=== PATIENT | female | born 1940 | race Caucasian/White ===

== ENCOUNTER 2016-08-25 11:03 | Inpatient (IN) | payer OTHER, MEDICARE ==
[~2016-08-25] VITALS: Ht 160 cm; Wt 74.8 kg
[2016-09-14] MEDS ORDERED: LACTCAP8 PO (13:45)
[2016-09-14] MEDS ORDERED: VITA100036 PO (13:45)
[2016-09-14] MEDS ORDERED: MAGN400C2 PO (13:45)
[2016-09-14] MEDS ORDERED: LEVO50TA4 PO (13:45)
[2016-09-14] MEDS ORDERED: KRIL1000 PO (13:45)
[2016-09-14] MEDS ORDERED: PRIL20TA2 PO (13:45)
[2016-09-14] MEDS ORDERED: COQ-30CA2 PO (13:45)
[2016-09-14] MEDS ORDERED: CRANCAP PO (13:45)
[2016-09-14] MEDS ORDERED: ROSU20 PO (13:45)
[2016-09-14] MEDS ORDERED: ATEN25TA PO (13:45)
--- NOTE | 2016-09-28 19:42 | MH ---
cc: RIYA HUTCHINS DATE OF ADMISSION 09/29/2016 ADMISSION DIAGNOSIS Osteoarthritis of the left hip. HISTORY OF THE PRESENT ILLNESS This patient is a 76-year-old female with longstanding arthritis of the left hip. The patient has had extensive conservative care and has been followed by the undersigned for quite some time. The patient appears to be in progressive distress and losing function and activities. The patient has had conservative care that goes back many years. She cannot take NSAIDs because of kidney disease brought on by Vioxx. The patient was advised not to take that. She has seen physical therapy in the past. She has had injection of cortisone in the hip. X-ray shows evidence of extensive arthritis of the left hip and now she presents for surgical treatment. PAST MEDICAL HISTORY, SOCIAL HISTORY AND FAMILY HISTORY See attached notes. REVIEW OF SYSTEMS See attached notes. PHYSICAL EXAMINATION 5 feet 3 inches, 159 pounds. BMI 27.7. VITAL SIGNS: Blood pressure 122/78. HEENT: Normocephalic, atraumatic. Pupils equal, round, reactive to light and accommodation. Extraocular motions intact. NECK: Supple. CHEST: Clear. HEART: Regular rate and rhythm. ABDOMEN: Soft, nontender, normoactive bowel sounds. MUSCULOSKELETAL: Left hip severe restricted range of motion especially with internal and external rotation. Minimal shortening of the left leg compared to the right. Neurologic and vascular emanations within normal limits. IMPRESSION Osteoarthritis of the left hip. PLAN Left total hip replacement arthroplasty, direct anterior exposure. CONSENT The risks of surgery including infection, bleeding, loss of motion, continued pain, need for further surgery, neurologic and vascular injury. The patient understands these issues and wishes to press on with surgery as outlined above. MD VIVEK Huddleston/WALTER /5:58 PM /7:25 PM
[2016-09-29] MEDS ORDERED: LACTATED RINGER'S 1000 ML IV PRN (05:45)
[2016-09-29] MEDS ORDERED: METOPROLOL TARTRATE 25 MG TAB PO PRN (05:45)
[2016-09-29] MEDS ORDERED: INSULIN HUMAN REGULAR 1,000 UNITS/10 ML VIAL SQ PRN (05:45)
[2016-09-29] MEDS ORDERED: POVIDONE IODINE 5% (ANTISEPSIS KIT) 4 APPLICATIONS EACH NARE PRN (05:45)
[2016-09-29] MEDS ORDERED: SODIUM CHLORID 0.9% 500 ML IV PRN (05:45)
[2016-09-29] MEDS ORDERED: CHLORHEXIDINE GLUCONATE 2 % 1 PACK (2 CLOTHS) TOPICAL PRN (05:45)
[2016-09-29] MEDS ORDERED: POVIDONE IODINE 7.5% SCRUB 118 ML BOTTLE TOPICAL SCH (06:00)
[2016-09-29] MEDS ORDERED: VANCOMYCIN 1000 MG/NS 250 ML (for <70 kg) IV SCH ×2 (06:00)
[2016-09-29] MEDS ORDERED: ceFAZolin 2 GM PREMIX 50 ML IV SCH (06:00)
[2016-09-29 06:39] VITALS: BP 152/76; PULSE 60; RESP 20; TEMP 97.7; O2SAT 98
[2016-09-29] MEDS ORDERED: GENTAMICIN SULFATE 80 MG/2 ML VIAL ONE (06:54)
[2016-09-29] MEDS ORDERED: EXPAREL PERI-ARTICULAR INJECTION (TOTAL VOL. 60 ML) P-ARTICULR SCH ×2 (07:30)
[2016-09-29] MEDS ORDERED: SODIUM CHLORIDE 0.9% IV SCH (07:30)
[2016-09-29] MEDS ORDERED: TRANEXAMIC ACID IV SCH (07:30)
[2016-09-29] MEDS ORDERED: HYDR-3288 PO (07:39)
[2016-09-29] MEDS ORDERED: XARE10TA PO (07:39)
[2016-09-29] MEDS ORDERED: ACETAMINOPHEN/HYDROcodone 325 MG/7.5 MG TAB PO PRN (07:45)
[2016-09-29] MEDS ORDERED: MISCELLANEOUS NURSING INFORMATION XX PRN (07:45)
[2016-09-29] MEDS ORDERED: SODIUM CHLORIDE 0.9% FLUSH 5 ML FLUSH IVF PRN (07:45)
[2016-09-29] MEDS ORDERED: Post-op Orders (for Pharmacy) MISC XX ONE (07:45)
[2016-09-29] MEDS ORDERED: MORPHINE SULFATE 8 MG/ML INJ IM PRN (07:45)
[2016-09-29] MEDS ORDERED: NALOXONE HCL 0.4 MG/ML AMP IV PRN (07:45)
[2016-09-29] MEDS ORDERED: MORPHINE SULFATE 30 MG/30 ML PCA IV SCH (07:45)
[2016-09-29] MEDS ORDERED: MISCELLANEOUS PHARMACY INFORMATION XX ONE (07:45)
[2016-09-29] MEDS: ATORVASTATIN 40 MG TAB PO SCH (09:00)
[2016-09-29] MEDS: MAGNESIUM HYDROXIDE SUSP 30 ML CUP PO SCH ×3 (09:00→20:31)
[2016-09-29] MEDS: LEVOTHYROXINE SODIUM 50 MCG TAB PO SCH (09:00)
[2016-09-29] MEDS: PANTOPRAZOLE SOD 20 MG DELAYED RELEASE TAB PO SCH (09:00)
--- NOTE | 2016-09-29 09:21 | PD.OP ---
cc: Kory Washington MD Operative Report Date of Surgery: Sep 29, 2016 Preoperative Diagnosis: Osteoarthritis left hip, severe Postoperative Diagnosis: Same Procedure: Left total hip replacement arthroplasty, direct anterior exposure Anesthesia: Gen. Surgeon: Kory Washington Debubblizer(s): SANTANA Guillory Operation and Findings: EBL: 700 cc INDICATION: This patient presents with significant hip pain related to severe osteoarthritis of the left hip. The patient has had treatment including injections, oral medications, physical therapy. She now can no longer take NSAIDs because of kidney disease. Despite extensive conservative care this patient continues to be painful and now presents for surgical treatment. NOTE: Asiya Guillory PA-C was present for the entire surgical procedure as my diploma medical assistant. In my medical opinion her skill and care was necessary for the proper management of this patient. COMPONENTS: COMPANY: [employer] CUP: Searchlight, 54 mm, 100 series, gription surface LINER: Altrx 36, neutral STEM: Corail, size 13, standard offset, hydroxyapatite-coated HEAD: 36 mm, -2, 14 taper PROCEDURE: This patient was brought to the operating room and anesthetized in the supine position and positioned on the fracture table with both legs held extended. The left hip and leg was scrubbed with alcohol followed by Hibiclens followed by ChloraPrep and draped sterilely. Antibiotics were given within routine time window and a timeout was done. A 4 inch incision was made starting 2 cm distal and 2 cm lateral to the anterior superior iliac spine. The fascia moe was opened longitudinally. The interval between the fascia moe and the rectus was opened down to the capsule of the hip joint. Retractors were positioned allowing good visualization of the capsule. This was opened longitudinally and flaps were created. Stay sutures were utilized. Exposure was excellent. The neck was cut at the proper location using fluoroscopy as a guide. The head was removed. Deep retractors were positioned allowing good visualization of the acetabulum. Acetabulum was deepened down to the floor starting with a proper size reamer and reaming up to 53 mm. A trial was utilized. Fluoroscopy was used to check position and confirmed satisfactory alignment. The rim was reamed with a 54 mm reamer and the final cup was positioned in approximately 20 of anteversion and 40-45 of abduction. Position was satisfactory. A single hole eliminator was positioned followed by the final liner. The lifting hook was utilized. The leg was dropped to the floor, maximally externally rotated and brought across the midline. Retractors were positioned. A box osteotome was utilized followed by progressive broaching to the proper stem size. Trial reduction showed excellent alignment and fit. With 60 of external rotation the leg was dropped to the floor without evidence of anterior subluxation. The wound was irrigated. The final stem was inserted and was found to be very stable. The final reduction using the final head. Stability was as previously noted. Intraoperative x-rays were taken. The wound was irrigated copiously. Hemostasis was controlled. Local anesthesia was utilized. The capsule was repaired with #2 Tycron sutures. The fascia moe was repaired with running 0 PDS on a loop. Subcutaneous tissue was approximated with 2-0 Vicryl and skin with running intradermal 3-0 Vicryl followed by Steri-Strips. A sterile dressing was applied. The patient was awakened and taken to the recovery room in satisfactory condition. FINDINGS: There was severe arthritis of the left hip. Circumferential osteophytes seen. Significant inflammatory changes were noted. The final solution was excellent. Kory Washington MD Sep 29, 2016 09:21
--- NOTE | 2016-09-29 09:26 | RADRPT ---
EXAM DATE/TIME: 09/29/2016 08:02 [facility] COMPARISON: HIP LEFT (AP & LAT), August 17, 2014, 13:33. INDICATIONS : Left anterior total hip arthroplasty. MEDICAL HISTORY : None. SURGICAL HISTORY : None. ENCOUNTER: Initial ACUITY: 1 day PAIN SCORE: Non-responsive. LOCATION: Left hip FINDINGS: 4 spot fluoroscopic images of the left hip joint and in the operating and during a procedure demonstr ates a left hip joint osteoarthritis prior to placement of the left hip hardware/total hip arthroplas ty. CONCLUSION: Expected findings during left hip arthroplasty. Sudeep Weeks MD on September 29, 2016 at 9:18 Board Certified Radiologist. This report was verified electronically.
[2016-09-29] MEDS ORDERED: *morphine SULFATE 8 MG/ML PERIprocedure ONLY ONE (09:59)
[2016-09-29 10:00] VITALS: BP 133/85; PULSE 50; RESP 14; TEMP 95; O2SAT 98
[2016-09-29] MEDS: SODIUM CHLORIDE 0.9% FLUSH 5 ML FLUSH IVF SCH ×2 (10:00→20:29)
[2016-09-29] MEDS ORDERED: DO NOT ADM ANY ANTICOAGULANT DRUGS PRN (10:15)
[2016-09-29] MEDS ORDERED: fentaNYL CITRATE 250 MCG/5 ML AMP ONE (10:19)
[2016-09-29] MEDS: LACTATED RINGER'S 1000 ML INJ 1,000 ML IV SCH ×2 (10:26→20:29)
[2016-09-29 12:00] VITALS: BP 133/62; PULSE 54; RESP 17; TEMP 95; O2SAT 97
[2016-09-29] MEDS ORDERED: ePHEDrine/NS 25 MG/5 ML SYR IV ONE (12:00)
[2016-09-29] MEDS ORDERED: LACTATED RINGER'S 1000 ML INJ 2,000 ML IV ONE (12:00)
[2016-09-29] MEDS ORDERED: PHENYLEPH/NS 1000 MCG/10 ML SYR IV ONE (12:00)
[2016-09-29] MEDS ORDERED: PROPOFOL 200 MG/20 ML AMP IV ONE (12:00)
[2016-09-29] MEDS ORDERED: NEOSTIGMINE METHYLSULFATE 10 MG/10 ML VIAL IV PUSH ONE (12:00)
[2016-09-29] MEDS ORDERED: ONDANSETRON HCL 4 MG/2 ML VIAL IV PUSH ONE (12:00)
[2016-09-29 16:00] VITALS: BP 120/58; PULSE 64; RESP 17; TEMP 95.6; O2SAT 99
[2016-09-29] MEDS ORDERED: ONDANSETRON HCL 4 MG/2 ML VIAL IV PUSH PRN (17:00)
[2016-09-29 19:16] VITALS: BP 136/62; PULSE 61; RESP 18; TEMP 97.1; O2SAT 100
[2016-09-29] MEDS: SENNOSIDES 8.6 MG TAB PO SCH (20:29)
[2016-09-29] MEDS: ATENOLOL 25 MG TAB PO SCH (20:29)
[2016-09-29] MEDS: PCA - TOTAL MG MORPHINE DELIVERED PER SHIFT SCH (21:52)
[2016-09-29] MEDS ORDERED: diphenhydrAMINE HCL 25 MG CAP PO PRN (22:00)
[2016-09-29 23:37] VITALS: BP 100/44; PULSE 68; RESP 18; TEMP 98.5; O2SAT 98
[2016-09-30] VITALS (7 sets, daily range): BP systolic 95–110; BP diastolic 41–53; PULSE 68–83; RESP 17–18; TEMP 96–99.3; O2SAT 93–99
[2016-09-30] MEDS: LEVOTHYROXINE SODIUM 50 MCG TAB PO SCH (05:11)
[2016-09-30] MEDS: PANTOPRAZOLE SOD 20 MG DELAYED RELEASE TAB PO SCH (05:11)
[2016-09-30] MEDS: PCA - TOTAL MG MORPHINE DELIVERED PER SHIFT SCH (06:00)
--- NOTE | 2016-09-30 07:31 | HHI.FF ---
Face to Face Verification Diagnosis: (1) Left hip pain (2) Osteoarthritis of left hip Physical Therapy Gait training, Safety evaluation, Transfer training, bed to chair Hip: Total hip, Protocol: Left, Progress to weight bearing Left LE Weight Bearing: WB as tolerated Additional Instructions PT 4 days.wk for 2 weeks. WBAT LLE. Anterior alexander protocol. Gait training, transfers. Nursing RN Days per Week: 2 x Week(s): 1 Dressing Changes: Do not change dressing Additional Instructions Hold dressing changes unless saturated. Vitals assessment. I have seen patient Taniya Ann on 09/30/16. My clinical findings support the need for the requested home health care services because: Limited ability to care for self High risk of falls I certify that my clinical findings support that this patient is homebound because: Post-op weakness Unsteady gait/balance Ana Pappas Sep 30, 2016 07:31
--- NOTE | 2016-09-30 07:33 | PD.ORT.PN ---
Subjective Subjective Remarks Moderate left hip pain. Has to use MUSIC ARTIST last night. Pain comes and goes. Some nausea yesterday but better today. NO new leg pain. No CP or SOB. Questions about surgery. Objective Vitals Vital Signs Date Time Temp Pulse Resp B/P Pulse Ox O2 Delivery O2 Flow Rate FiO2 09/30/16 06:00 17 09/30/16 04:37 98.2 68 17 96/41 99 09/29/16 23:37 98.5 68 18 100/44 98 09/29/16 21:52 18 09/29/16 19:16 97.1 61 18 136/62 100 09/29/16 16:00 95.6 64 17 120/58 99 09/29/16 12:00 95.0 54 17 133/62 97 09/29/16 11:58 Nasal Cannula 2.00 09/29/16 10:30 97.6 56 15 145/67 100 Nasal Cannula 2 09/29/16 10:15 55 17 138/56 100 Nasal Cannula 2 09/29/16 10:15 15 09/29/16 10:00 53 14 143/65 98 Nasal Cannula 2 09/29/16 10:00 95.0 50 14 133/85 98 09/29/16 09:48 97.6 66 16 133/66 99 Nasal Cannula 2 I/O 09/29/16 09/29/16 09/29/16 09/30/16 09/30/16 09/30/16 07:00 15:00 23:00 07:00 15:00 23:00 Intake Total 1610 ml 1459 ml 985 ml Output Total 1450 ml 450 ml 1800 ml Balance 160 ml 1009 ml -815 ml Intake Oral 410 ml 480 ml 360 ml IV Total 979 ml 625 ml Other 1200 ml Output Urine Total 750 ml 450 ml 1800 ml Estimated Blood Loss 700 ml # Bowel Movements 0 0 0 Objective Remarks Laying in bed, NAD VSS LLE Dressing c/d/i, mild swelling, no erythema, thigh and calf supple, neg homans distal +motor at, +sens, +nvi Assessment & Plan Ortho Post Op Day #: 1 Problem List: Assessment and Plan pod#1 s/p L MINGO, anterior D/C mechanic field service - change to po pain meds PT - WBAT LLE. Walker as needed. Anterior mingo protocol. Hold dressing changes unless saturated. Xarelto 10mg qd D/C planning, likely home w [facility] tomorrow. F2F written. Ana Pappas Sep 30, 2016 07:33
[2016-09-30] MEDS ORDERED: COMMODE 3-IN-11 MIS (07:35)
[2016-09-30] MEDS ORDERED: WALKER WHEELS/F1 MIS (07:35)
[2016-09-30 07:54] LABS: HEMATOCRIT 25.8 % (35.0-46.0); REVIEW FLAG FINAL
--- NOTE | 2016-09-30 08:44 | HHI.DCPOC ---
Discharge Care Plan Diagnosis: (1) Left hip pain (2) Osteoarthritis of left hip Your Health Problems Are: Incision/Drains Swelling Goals to Promote Your Health * To prevent worsening of your condition and complications * To maintain your health at the optimal level Directions to Meet Your Goals Take your medications as prescribed Follow your dietary instruction Follow activity as directed Keep your appointments as scheduled Take your immunizations and boosters as scheduled If your symptoms worsen call your PCP, if no PCP go to Urgent Care Center or Emergency Room Smoking is Dangerous to Your Health. Avoid second hand smoke Call the 24-hour hour crisis hotline for domestic abuse at Ana Pappas Sep 30, 2016 08:44
--- NOTE | 2016-09-30 08:45 | HHI.DS ---
Discharge Summary Admission Date Sep 29, 2016 at 05:30 Discharge Date: Oct 01, 2016 Admitting Diagnosis see below Diagnosis: (1) Left hip pain Diagnosis: Principal (2) Osteoarthritis of left hip Diagnosis: Principal Procedures Left total hip arthroplasty, Direct anterior approach Brief History This is a 76 year old female patient with a long history of left hip pain. She sought out medical treatment when her function began to decline. Imaging studies showed moderate to severe osteoarthritis of the left hip. Conservative measures were pursued including medications, therapy and activity limitations. She continued to decline. Surgery was recommended in the form of left total hip arthroplasty and she elected to move forward with scheduling. She now presents for the above. CBC/BMP: 09/30/16 0701 Significant Findings Laboratory Tests Test 09/30/16 07:01 Hemoglobin 8.9 GM/DL (11.6-15.3) Hematocrit 25.8 % (35.0-46.0) PE at Discharge Laying in bed, NAD VSS LLE Dressing c/d/i, mild swelling, no erythema, thigh and calf supple, neg homans distal +motor at, +sens, +nvi Hospital Course Surgical treatment was performed on the day of admission without complication. She recovered well in pacu and was transferred to the orthopaedic floor. Pain was controlled with IV and oral medications. DVT prophylaxis was initiated pod# 1 with xarelto. She was compliant with physical therapy and all MINGO precautions. After 2 days she was found to be stable and discharged home with home health care. She was instructed to continue her xarelto for 25 days, continue therapy, and to pursue a high fiber diet for 3-5 days. Pt Condition on Discharge: Stable Discharge Disposition: Disch w/ Home Health Serv Discharge Instructions Diet Instructions: As Tolerated, No Restrictions, High Fiber Diet Activities You Can Perform: Weight Bearing as Fatuma Activities to Avoid: Strenuous Activity Additional Activity Instruc.: Anterior MINGO protcol New Medications: Commode 3-in-1 (Commode 3-in-1) 1 Mis Mis 1 EA .ROUTE DIRECTED #1 Ref 0 EA Hydrocodone-Acetaminophen ([place]) 7.5-325 mg Tab 1 TAB PO Q4H PRN PAIN #50 Ref 0 TAB Rivaroxaban (Xarelto) 10 Mg Tab 10 MG PO DAILY PRN Prevent Blood Clot #25 Ref 0 TAB Walker with Front Wheels (Walker with Front Wheels) 1 Mis Mis 1 EA .ROUTE DIRECTED #1 Ref 0 EA Continued Medications: Atenolol (Atenolol) 25 Mg Tab 25 MG PO HS Blood Pressure Management #30 TAB Cholecalciferol (Vitamin D3) 1,000 Unit Cap 1000 UNITS PO DAILY Nutritional Supplement #1 Ref 0 BOTTLE Coenzyme Q10 (Ubidecarenone) (Coq-10) 30 Mg Cap 10 MG PO HS Cranberry-Vitamin C-Vitamin E (Cranberry Concentrate) 140-100-3 Mg-Mg-Unit Cap 1 TAB PO DAILY Krill Oil (Krill Oil) 1,000 Mg Cap Unknown Dose PO DAILY CAP Lactobacillus Acidophilus (Probiotic) 1 Cap Cap 1 CAP PO DAILY Nutritional Supplement #90 Ref 0 CAP Levothyroxine (Levothyroxine) 50 Mcg Tab 50 MCG PO DAILY Thyroid #30 Ref 0 TAB Magnesium Oxide (Magnesium Oxide) 400 Mg Cap 400 MG PO DAILY Omeprazole Magnesium (Prilosec) 20 Mg Tab 1 TAB PO DAILY Rosuvastatin (Crestor) 20 Mg Tab 20 MG PO DAILY Cholesterol Management #30 Ref 0 TAB Ana Pappas Sep 30, 2016 08:45
[2016-09-30] MEDS: MAGNESIUM HYDROXIDE SUSP 30 ML CUP PO SCH ×2 (08:59→20:51)
[2016-09-30] MEDS: ATORVASTATIN 40 MG TAB PO SCH (09:00)
[2016-09-30] MEDS: SODIUM CHLORIDE 0.9% FLUSH 5 ML FLUSH IVF SCH ×2 (09:00→20:56)
[2016-09-30] MEDS: RIVAROXABAN 10 MG TAB PO SCH (09:00)
[2016-09-30] MEDS: LACTATED RINGER'S 1000 ML INJ 1,000 ML IV SCH ×2 (09:00→21:30)
[2016-09-30] MEDS: ACETAMINOPHEN/HYDROcodone 325 MG/7.5 MG TAB PO PRN ×3 (09:05→19:21)
[2016-09-30] MEDS: SENNOSIDES 8.6 MG TAB PO SCH (20:51)
[2016-10-01] MEDS: ATENOLOL 25 MG TAB PO SCH (03:59)
[2016-10-01] MEDS: ACETAMINOPHEN/HYDROcodone 325 MG/7.5 MG TAB PO PRN ×3 (04:02→13:04)
[2016-10-01 04:47] VITALS: BP 121/53; PULSE 88; RESP 18; TEMP 99.6; O2SAT 98
[2016-10-01] MEDS: LEVOTHYROXINE SODIUM 50 MCG TAB PO SCH (05:28)
[2016-10-01] MEDS: PANTOPRAZOLE SOD 20 MG DELAYED RELEASE TAB PO SCH ×2 (06:36→08:46)
[2016-10-01 08:00] VITALS: BP 121/53; PULSE 72; RESP 16; TEMP 98.7; O2SAT 100
--- NOTE | 2016-10-01 08:31 | PD.ORT.PN ---
Subjective Subjective Remarks Mild to moderate left hip pain controlled w PO pain meds. Better today. She states she had a 'much better' night last night. Her BP med was held due to BP in the 80s but much improved today. Overall no complaints. No new CP or SOB. Ready for d/c home today. Objective Vitals Vital Signs Date Time Temp Pulse Resp B/P Pulse Ox O2 Delivery O2 Flow Rate FiO2 10/01/16 04:47 99.6 88 18 121/53 98 09/30/16 23:59 99.3 83 18 102/53 95 09/30/16 20:21 18 09/30/16 20:05 99.0 82 17 109/53 99 09/30/16 16:00 96.4 79 18 104/48 98 09/30/16 12:00 96.0 76 18 95/48 96 09/30/16 10:10 110/50 I/O 09/30/16 09/30/16 09/30/16 10/01/16 10/01/16 10/01/16 06:59 14:59 22:59 06:59 14:59 22:59 Intake Total 985 ml 840 ml 240 ml 480 ml Output Total 1800 ml 350 ml Balance -815 ml 490 ml 240 ml 480 ml Intake Oral 360 ml 840 ml 240 ml 480 ml IV Total 625 ml Output Urine Total 1800 ml 350 ml # Voids 2 1 1 # Bowel Movements 0 0 0 0 Result Diagram: 09/30/16 0701 Procedures Left total hip arthroplasty, Direct anterior approach Objective Remarks Sitting up in bed, NAD VSS LLE Dressing c/d/i, mild swelling, no erythema, thigh and calf supple, neg homans distal +motor at, +sens, +nvi Assessment & Plan Ortho Post Op Day #: 2 Problem List: (1) Left hip pain (2) Osteoarthritis of left hip Assessment and Plan pod#2 s/p L MINGO, anterior Ortho stable. Pain better controlled. Ok to d/c home w c later today. PO pain meds as needed. PT - WBAT LLE. Walker as needed. Anterior mingo protocol. Hold dressing changes unless saturated. Xarelto 10mg qd F/U in 2 weeks as scheduled. F2F written. Ana Pappas Oct 01, 2016 08:31
[2016-10-01] MEDS: MAGNESIUM HYDROXIDE SUSP 30 ML CUP PO SCH (08:46)
[2016-10-01] MEDS: SODIUM CHLORIDE 0.9% FLUSH 5 ML FLUSH IVF SCH (08:46)
[2016-10-01] MEDS: ATORVASTATIN 40 MG TAB PO SCH (08:46)
[2016-10-01] MEDS: RIVAROXABAN 10 MG TAB PO SCH (08:46)
[2016-10-01] MEDS: LACTATED RINGER'S 1000 ML INJ 1,000 ML IV SCH (08:48)
[2016-10-01 13:14] VITALS: BP 104/62
== END 2016-10-01 13:48 | disposition home health service (06) | DRG 470 ==
LOC: HSDI 09-29 05:30 → N06B 09-29 10:43
PROVIDERS: ADMIT Orthopaedic Surgery Orthopaedic Surgery of the Spine; ATTEND Orthopaedic Surgery Orthopaedic Surgery of the Spine
PROC: 0SRB0JA Replacement of Left Hip Joint with Synthetic Substitute, Uncemented, Open Approach (ICD-10-PCS; principal; 2016-09-29 07:19)
DX: M16.12 Unilateral primary osteoarthritis, left hip (principal); N28.9 Disorder of kidney and ureter, unspecified
CPT/HCPCS: 73502; 76000; 85014; 85018; 86850; 86890; 86900; 86901; 86920; 94150; C1776; C9290; J0690; J1580; J2270; J2370; J2405; J2710; J3010; J3370; J7050; J7120

== ENCOUNTER → 2016-09-14 | Outpatient (CLI) | payer OTHER ==
[~2016-09-14] MED LIST: ASPI81TA82 PO; ATEN-100 PO; ATEN25TA PO; COQ-30CA2 PO; CRANCAP PO; DICL75 PO; DIPH50TA PO; FISH1000 PO; HYDR-3288 PO; KRIL1000 PO; LACTCAP7 PO; LACTCAP8 PO; LEVO50TA4 PO; MAGN400C2 PO; MOVE FREE PO; PRIL20CA PO; PRIL20TA2 PO; ROSU20 PO; ROSU40 PO; TRAM50 PO; TRIA.1%T EXT; VITA-13 PO; VITA100036 PO; XARE10TA PO; [UNRECOGNIZED DRUG - OTHER] PO
== END ==
LOC: CPRE 11:15
PROVIDERS: ATTEND Orthopaedic Surgery Orthopaedic Surgery of the Spine
DX: M16.12 Unilateral primary osteoarthritis, left hip (principal)

== ENCOUNTER 2016-11-02 12:37 | Emergency (ER) | payer MEDICARE, OTHER ==
[~2016-11-02] VITALS: Ht 160 cm; Wt 68.0 kg
[~2016-11-02 12:37] MED LIST changes: -ASPI81TA82 PO; -ATEN-100 PO; +COMMODE 3-IN-11 MIS; -DICL75 PO; -DIPH50TA PO; -FISH1000 PO; -LACTCAP7 PO; -MOVE FREE PO; -PRIL20CA PO; -ROSU40 PO; -TRAM50 PO; -TRIA.1%T EXT; -VITA-13 PO; +WALKER WHEELS/F1 MIS; -[UNRECOGNIZED DRUG - OTHER] PO
[2016-11-02 12:40] VITALS: BP 142/75; PULSE 72; RESP 20; TEMP 98; O2SAT 98
--- NOTE | 2016-11-02 12:57 | PD ---
HPI Chief Complaint: Pain: Acute or Chronic Time Seen by Provider: 12:56 Travel History International Travel<30 days: No Contact w/Intl Traveler<30days: No Traveled to known affect area: No History of Present Illness HPI 76-year-old female with PMH of GERD, Chandra's esophagus, hiatal hernia, hypothyroid, osteoarthritis, HLD, total LEFT hip replacement by Dr. Pool Medel on 09/29/16 presents to the ED for evaluation of 2 weeks history of 7/ 10 LLE pain and numbness that radiates to the knee. Also complains of "a strap" sensation over the top of the left ankle. The patient denies fever, chills, chest pain, SOB, palpitations, nausea, vomiting, chest pain,limited ROM or weakness of the extremity. She is ambulating without any problems since surgery and undergoing PT. At the postsurgical follow-up appointment the patient was prescribed clindamycin and endorses compliance with medication with no improvement of symptoms. She saw Dr. Medel's PA a second time and was diagnosed with herpes zoster, prescribed valacyclovir with no improvement of the symptoms. She endorses some improvement of symptoms with gabapentin. She states that she saw her enlisted advisor and had a biopsy and culture performed which is pending. She is using topical steroid ointment now and states that she is getting some improvement in the appearance of the rash area. She states that she's been taking 7.5 mg Lortab intermittently as needed for pain. PFSH Past Medical History Cancer: Yes (SQUAMEOUS CELL SKIN) Cardiovascular Problems: Yes (HX OF IRREGULAR HEARTBEAT) High Cholesterol: Yes Diabetes: No Endocrine: Yes Gastrointestinal Disorders: Yes (GERD, HIATAL HERNIA, CHANDRA'S ESOPHAGUS) Genitourinary: No Hepatitis: No Hiatal Hernia: Yes Immune Disorder: No Musculoskeletal: Yes (ARTHRITIS) Neurologic: No Psychiatric: No Reproductive: Yes (OVARIAN CYSTS) Respiratory: No Immunizations Current: Yes Thyroid Disease: Yes (HYPOTHYROID) Menopausal: Yes Past Surgical History AICD: No Body Medical Devices: METAL POST IN TEETH Gynecologic Surgery: Yes (OVARIES REMOVED) Joint Replacement: No Oral Surgery: Yes (TONSILLECTOMY) Pacemaker: No Other Surgery: Yes Social History Alcohol Use: No Tobacco Use: No Substance Use: No Allergies-Medications (Allergen,Severity, Reaction): Coded Allergies: Sulfa (Sulfonamide Antibiotics) (Unverified Allergy, Intermediate, SORES IN MOUTH, RASH, 10/13/16) erythromycin base (Unverified Adverse Reaction, Severe, LEGS AND JOINTS SWELLING, 10/13/16) Reported Meds & Prescriptions Reported Meds & Active Scripts Active Wilson (Hydrocodone-Acetaminophen) 10-325 Mg Tab 1 Tab PO Q6H PRN Commode 3-in-1 (Device) 1 Mis Mis 1 Ea .ROUTE DIRECTED Walker with Front Wheels (Device) 1 Mis Mis 1 Ea .ROUTE DIRECTED Xarelto (Rivaroxaban) 10 Mg Tab 10 Mg PO DAILY PRN Wilson (Hydrocodone-Acetaminophen) 7.5-325 mg Tab 1 Tab PO Q4H PRN Reported Krill Oil 1,000 Mg Cap Unknown Dose PO DAILY Crestor (Rosuvastatin Calcium) 20 Mg Tab 20 Mg PO DAILY Prilosec (Omeprazole Magnesium) 20 Mg Tab 1 Tab PO DAILY Magnesium Oxide 400 Mg Cap 400 Mg PO DAILY Levothyroxine (Levothyroxine Sodium) 50 Mcg Tab 50 Mcg PO DAILY Probiotic (Lactobacillus Acidophilus) 1 Cap Cap 1 Cap PO DAILY Cranberry Concentrate (Cranberry-Vitamin C-Vitamin E) 140-100-3 Mg-Mg-Unit Cap 1 Tab PO DAILY Coq-10 (Coenzyme Q10 (Ubidecarenone)) 30 Mg Cap 10 Mg PO HS Vitamin D3 (Cholecalciferol) 1,000 Unit Cap 1,000 Units PO DAILY Atenolol 25 Mg Tab 25 Mg PO HS Review of Systems Except as stated in HPI: all other systems reviewed are Neg Physical Exam Narrative GENERAL: Well-nourished, well-developed pleasant white female in no acute distress. SKIN: Focused skin assessment warm/dry. 4 x 4 centimeter area of moist, tender erythema on the anterior aspect of the left marquez. Well-healing surgical scar of the left hip with no signs of infection. HEAD: Normocephalic. EYES: No scleral icterus. No injection or drainage. NECK: Supple, trachea midline. No JVD or lymphadenopathy. CARDIOVASCULAR: Regular rate and rhythm without murmurs, gallops, or rubs. RESPIRATORY: Breath sounds clear and equal bilaterally. No accessory muscle use. GASTROINTESTINAL: Abdomen soft, non-tender, nondistended. Active bowel sounds. MUSCULOSKELETAL: No cyanosis, or edema. 2+ DP pulses bilaterally. Homans sign negative bilaterally. No weakness or limitations to ROM. Neurovascularly intact. BACK: Nontender without obvious deformity. No CVA tenderness. Data Data Last Documented VS Vital Signs Date Time Temp Pulse Resp B/P (MAP) Pulse Ox O2 Delivery O2 Flow Rate FiO2 11/02/16 12:40 98.0 72 20 142/75 (97) 98 Room Air Orders Orders Us Leg Venous Doppler (11/02/16 13:22) Basic Metabolic Panel (Bmp) (11/02/16 13:34) Complete Blood Count With Diff (11/02/16 13:34) Oxycodone-Acetamin 5-325 Mg (Percocet (11/02/16 13:45) Ankle, Limited (Ap&Lat) (11/02/16 14:30) Labs Laboratory Tests Test 11/02/16 13:50 White Blood Count 6.0 TH/MM3 Red Blood Count 4.22 MIL/MM3 Hemoglobin 12.8 GM/DL Hematocrit 39.2 % Mean Corpuscular Volume 92.7 FL Mean Corpuscular Hemoglobin 30.3 PG Mean Corpuscular Hemoglobin Concent 32.7 % Red Cell Distribution Width 14.7 % Platelet Count 253 TH/MM3 Mean Platelet Volume 7.7 FL Neutrophils (%) (Auto) 70.8 % Lymphocytes (%) (Auto) 20.2 % Monocytes (%) (Auto) 6.9 % Eosinophils (%) (Auto) 1.7 % Basophils (%) (Auto) 0.4 % Neutrophils # (Auto) 4.3 TH/MM3 Lymphocytes # (Auto) 1.2 TH/MM3 Monocytes # (Auto) 0.4 TH/MM3 Eosinophils # (Auto) 0.1 TH/MM3 Basophils # (Auto) 0.0 TH/MM3 CBC Comment DIFF FINAL Differential Comment Blood Urea Nitrogen 14 MG/DL Creatinine 0.92 MG/DL Random Glucose 117 MG/DL Calcium Level 8.6 MG/DL Sodium Level 136 MEQ/L Potassium Level 4.2 MEQ/L Chloride Level 102 MEQ/L Carbon Dioxide Level 28.0 MEQ/L Anion Gap 6 MEQ/L Estimat Glomerular Filtration Rate 60 ML/MIN MDM Medical Decision Making Medical Screen Exam Complete: Yes Emergency Medical Condition: Yes Differential Diagnosis post herpetic neuralgia versus thrombophlebitis versus cellulitis versus DVT versus other Narrative Course 76-year-old female with PMH of GERD, Chandra's esophagus, hiatal hernia, hypothyroid, HLD, OA, total LEFT hip replacement by Dr. Pool Medel on 09/29/16 presents to the ED for evaluation of 2 weeks history of 7/10 LLE pain and numbness that radiates to the knee. Also complains of "a strap" sensation over the top of the left ankle. She is ambulating without any problems since surgery and undergoing PT. The patient was prescribed clindamycin, endorses compliance with medication with no improvement of symptoms. She was diagnosed with herpes zoster, prescribed valacyclovir with no improvement of the symptoms. Small improvement of symptoms with gabapentin. Biopsy and culture performed at dermatologists which is pending. Vitals reviewed. Physical exam reveals a well -appearing white female in no acute distress. There is a 4 x 4 centimeter tender and erythematous area on the anterior aspect of the left marquez. Homans sign negative. No lower extremity edema. No weakness or limitations to ROM, neurovascular intact. Lower extremity ultrasound negative for DVT. No leukocytosis on CBC. X-ray of the ankle unremarkable. The patient's daughter has pictures of the rash is early stages and it suspicious for shingles. I suspect this is postherpetic neuralgia. She was prescribed a short course of narcotic pain medications, encouraged to continue with gabapentin. She has follow-up with the orthopedist and enlisted advisor in the upcoming weeks. She is instructed to take the medication as described, return to normal, gentle activities as tolerated, follow-up as planned. The patient and her daughter are agreeable to this care plan. She is stable and discharged home. Diagnosis Primary Impression: Pain in left lower leg Referrals: Kory Washington MD Restaurant Worker Primary Care Physician Patient Instructions: General Instructions, Shingles (ED) Additional Instructions: Rest, hydrate. Return to normal, gentle activities as tolerated. Take pain medication as prescribed. Do not drive while taking pain medications. Follow up with Dr. Medel, your enlisted advisor and the PCP as discussed. Return to the ED for any urgent or emergent medical condition. Med/Other Pt SpecificInfo: Prescription(s) given Scripts Hydrocodone-Acetaminophen (Wilson) 10-325 Mg Tab 1 TAB PO Q6H Y for PAIN, #7 TAB 0 Refills Prov: Jennifer Bernal 11/02/16 Disposition: 01 DISCHARGE HOME Condition: Stable Latasha Langston Nov 02, 2016 12:57
[2016-11-02] MEDS ORDERED: oxyCODONE/ACETAMINOPHEN 5 MG/325 MG TAB PO ONE (13:45)
--- NOTE | 2016-11-02 14:00 | RADRPT ---
EXAM DATE/TIME: 11/02/2016 13:38 [facility] COMPARISON: No previous studies available for comparison. INDICATIONS : Left leg pain. MEDICAL HISTORY : Hypothyroidism. Hypercholesterolemia. Gastroesophageal reflux disease. Neck pain. Glasses. Irregul ar heartbeat. Hypertension. Hiatal hernia. Ovarian cysts. Arthritis. Sqamous cell cancer. SURGICAL HISTORY : Tonsillectomy. Bilateral oopherectomy. ENCOUNTER: Initial ACUITY: 2 weeks PAIN SCORE: 2/10 LOCATION: Left leg. TECHNIQUE: Venous ultrasound of the leg was performed from the inguinal ligament to the proximal calf. Real-dee e, color Doppler and spectral tracing, compression and augmentation techniques were used. FINDINGS: There is normal compressibility of the deep venous system from the inguinal region to the proximal ca lf. No echogenic clot is seen in the lumen of the common femoral, femoral, popliteal, and posterior tibial veins. There is a normal response of the venous system to proximal and distal augmentation an d respiration. CONCLUSION: Negative for deep venous thrombosis. Kieran Valdez MD FACR on November 02, 2016 at 13:58 Board Certified Radiologist. This report was verified electronically.
[2016-11-02 14:08] LABS: AUTOMATED NEUTROPHIL # 4.3 TH/MM3 (1.8-7.7); BASOPHIL % 0.4 % (0.0-2.0); EOSINOPHIL # 0.1 TH/MM3 (0-0.4); EOSINOPHIL % 1.7 % (0.0-4.0); HEMATOCRIT 39.2 % (35.0-46.0); HEMO FLAGS DIFF FINAL; LYMPH % 20.2 % (9.0-44.0); LYMPHOCYTE # 1.2 TH/MM3 (1.0-4.8); MEAN CELL VOLUME 92.7 FL (80.0-100.0); MEAN CORPUSCULAR HEMOGLOBIN 30.3 PG (27.0-34.0); MEAN CORPUSCULAR HGB CONC 32.7 % (32.0-36.0); MONO % 6.9 % (0.0-8.0); NEUT % 70.8 % (16.0-70.0); PLATELET COUNT 253 TH/MM3 (150-450); RED BLOOD COUNT 4.22 MIL/MM3 (4.00-5.30); RED CELL DISTRIBUTION WIDTH 14.7 % (11.6-17.2)
[2016-11-02] MEDS ORDERED: HYDR-3366 PO (14:20)
[2016-11-02 14:22] LABS: POTASSIUM 4.2 MEQ/L (3.5-5.1)
--- NOTE | 2016-11-02 15:15 | RADRPT ---
EXAM DATE/TIME: 11/02/2016 14:56 [facility] COMPARISON: No previous studies available for comparison. INDICATIONS : No known injury. Pain since hip replacement on Sep 29. Pain on anterior surface of ankle and numbnes s on lateral side of left lower leg. MEDICAL HISTORY : None. SURGICAL HISTORY : Left total hip replacement. ENCOUNTER: Initial ACUITY: 1 month PAIN SCORE: 2/10 LOCATION: Left Ankle, anterior surface FINDINGS: Two view exam was performed of the left ankle. The bony structures are in normal alignment. No evid ence of fracture, dislocation, or soft tissue swelling. No radiopaque foreign bodies are seen. Bony mineralization is normal. CONCLUSION: Negative for fracture or soft tissue swelling. Kieran Valdez MD FACR on November 02, 2016 at 15:13 Board Certified Radiologist. This report was verified electronically.
[2016-11-02 15:50] VITALS: BP 143/72
== END 2016-11-02 15:51 | disposition home or self-care (01) ==
LOC: NEPC 12:37
DX: M79.662 Pain in left lower leg (principal)
CPT/HCPCS: 73600; 80048; 85025; 93971; 99285